=== PATIENT | female | born 1985 | race Caucasian/White ===

== ENCOUNTER 2017-05-13 23:09 | Day surgery (SDC) | payer OTHER ==
[~2017-05-13] VITALS: Ht 160 cm; Wt 91.2 kg
[~2017-05-13 23:09] MED LIST: OXYCODONE HCL5 M1 PO; REGLAN10 M1 PO
--- NOTE | 2017-05-14 01:01 | ED GI/GU/ABDOMINAL COMPLAINT ---
History of Present Illness General Chief Complaint: Abdominal Pain/Flank Pain Stated Complaint: RT SIDE ABD PAIN,+V X'S 3 HRS Source: patient, family, old records Exam Limitations: no limitations Vital Signs & Intake/Output Vital Signs & Intake/Output Vital Signs Date Time Temp Pulse Resp B/P B/P Pulse O2 O2 Flow FiO2 Mean Ox Delivery Rate 05/14 0529 99.6 95 18 110/62 98 Room Air 05/14 0037 Room Air 05/13 2319 99.8 88 16 140/84 97 Room Air ED Intake and Output 05/14 0000 05/13 1200 Intake Total Output Total Balance Patient 201 lb Weight Weight Estimated Measurement Method Allergies Coded Allergies: peanut (Severe, THROAT SWELLING AND HIVES 05/02/16) Sulfa (Sulfonamide Antibiotics) (Intermediate, HIVES, FACIAL REDNESS 05/02/16) latex ( 05/14/17) Reconcile Medications Albuterol Sulfate (Ventolin Hfa) 90 MCG HFA.AER.AD 2 PUF INH Q4-6 PRN PRN ASTHMA (Reported) Budesonide/Formoterol Fumarate (Symbicort 160-4.5 Mcg Inhaler) 160 MCG-4.5 MCG/ ACTUATION HFA.AER.AD 2 PUF INH BID ASTHMA (Reported) Metoclopramide HCl (Reglan) 10 MG TABLET 1 TAB PO Q6P PRN nausea/vomiting Montelukast Sodium 10 MG TABLET 1 TAB PO DAILY ALLERGY (Reported) Norethindrone-E.estradiol-Iron (Lo Loestrin Fe 1-10 Tablet) 1MG-10(24) TABLET 1 TAB PO DAILY CONTROL (Reported) Oxycodone HCl 5 MG TABLET 1 TAB PO Q6PRN migraine Triage Note: RECEIVED 31 YO FEMALE C/O RUQ ABDOMINAL PAIN RADIATING TO RLQ ABDOMIN, X 3 HOURS, NOW WITH NAUSEA AND VOMITING X 10. Triage Nurses Notes Reviewed? yes LMP (ages 10-50): unknown ? n Is pt currently ? No Onset: Evening Duration: hour(s):, constant, continues in ED, getting worse Timing: recent history Quality/Severity: aching, sharpness, severe, vomiting Location: right flank Radiation: RUQ Activities at Onset: none Prior Abdominal Problems: none Past Sexual History: Unobtainable at this time Modifying Factors: Worsens With: movement, palpation. Associated Symptoms: abdominal pain, loss of appetite, nausea/vomiting HPI: 4 hours prior to admission patient complains of nausea followed by right flank pain described as sharp and aching severe rating to right upper quadrant worse with palpation and movement. She denies fever chills chest pain cough shortness breath headache dysuria rash bleeding . Past History Travel History Traveled to [place] past 21 day No Medical History Any Pertinent Medical History? see below for history Neurological: NONE EENT: NONE Cardiovascular: NONE Respiratory: asthma Gastrointestinal: NONE Hepatic: NONE Renal: NONE Musculoskeletal: NONE Psychiatric: NONE Endocrine: NONE Blood Disorders: NONE Cancer(s): NONE WELT ROUGHER/Reproductive: NONE Surgical History Surgical History: non-contributory Psychosocial History Who do you live with Mother What is your primary language Lithuanian Tobacco Use: Current Not Daily Family History Hx Contributory? No Review of Systems Review of Systems Constitutional: Reports: see HPI, malaise. EENTM: Reports: no symptoms. Respiratory: Reports: no symptoms. Cardiovascular: Reports: no symptoms. GI: Reports: see HPI, abdominal pain, nausea, vomiting. Genitourinary: Reports: no symptoms. Musculoskeletal: Reports: no symptoms. Skin: Reports: no symptoms. Neurological/Psychological: Reports: no symptoms. Hematologic/Endocrine: Reports: no symptoms. Immunologic/Allergic: Reports: no symptoms. All Other Systems: Reviewed and Negative Physical Exam Physical Exam General Appearance: well developed/nourished, alert, awake, anxious, severe distress, obese Head: atraumatic, normal appearance Eyes: Bilateral: normal appearance, PERRL, EOMI, normal inspection. Ears, Nose, Throat, Mouth: hearing grossly normal, moist mucous membrane Neck: normal inspection, supple, full range of motion, normal alignment Respiratory: normal breath sounds, chest non-tender, no respiratory distress, quiet respiration, lungs clear Cardiovascular: regular rate/rhythm, normal peripheral pulses, norml femoral pulses equa Peripheral Pulses: 4+ carotid (R), 4+ carotid (L) Gastrointestinal: normal bowel sounds, soft, guarding, tenderness Back: normal inspection, normal range of motion Extremities: normal range of motion, no ligament instability Neurologic/Psych: no motor/sensory deficits, awake, alert, oriented x 3, normal gait, normal mood/affect, 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 No Severe Sepsis Present: No Septic Shock Present: No Progress Differential Diagnosis: appendicitis, gastritis, kidney stone, pancreatitis Plan of Care: Orders Procedure Date/time Status HIGH SENSITIVITY CRP 05/14 22 Complete HUMAN BETA HCG SCREEN 05/14 22 Complete COMPREHENSIVE METABOLIC PANEL 05/14 22 Complete CBC WITHOUT DIFFERENTIAL 05/14 22 Complete URINALYSIS 05/13 2320 Active Laboratory Tests 05/14/17 0535: Urine Color YEL, Urine Clarity CLEAR, Urine pH 6.0, Ur Specific [place] 1.015, Urine Protein TRACE H, Urine Ketones NEG, Urine Nitrite NEG, Urine Bilirubin NEG, Urine Urobilinogen 0.2, Ur Leukocyte Esterase NEG, Ur Microscopic SEDIMENT EXAMINED, Urine RBC Pending, Urine Hemoglobin NEG, Urine Glucose NEG 05/14/17 0110: CBC w Diff MAN DIFF ORDERED, RBC 4.40, MCV 83.8, MCH 27.8, RDW 13.8, MPV 8.5, Gran % 92.8 H, Lymphocytes % 5.6 L, Monocytes % 1.2 L, Eosinophils % 0.3, Basophils % 0.1, Absolute Granulocytes 17.6 H, Segmented Neutrophils 92 H, Absolute Lymphocytes 1.1 L, Lymphocytes 7 L, Monocytes 1 L, Absolute Monocytes 0.2, Absolute Eosinophils 0, Absolute Basophils 0, Platelet Estimate ADEQUATE, Normochromic RBCs VERIFIED, Poikilocytosis 1+, Ovalocytes 1+, PUBS MCHC 33.1, Fld Total RBCs Counted 100 05/14/17 0045: Anion Gap 13, Estimated GFR > 60, BUN/Creatinine Ratio 21.4, Glucose 110 H, Calcium 9.2, Total Bilirubin 0.5, AST 14, ALT 37, Alkaline Phosphatase 63, C- React Prot High Sens 7.5 H, Total Protein 7.4, Albumin 4.3, Globulin 3.1, Albumin/Globulin Ratio 1.4, Total Beta HCG NEGATIVE Diagnostic Imaging: Viewed by Me: CT Scan. Discussed w/RAD: CT Scan. Radiology Impression: appendicitis Initial ED EKG: none Departure Departure Disposition: STILL A PATIENT Condition: Stable Clinical Impression Primary Impression: Appendicitis Qualifiers: Appendicitis type: acute appendicitis Acute appendicitis type: with localized peritonitis Qualified Code: K35.3 - Acute appendicitis with localized peritonitis Secondary Impressions: Nausea & vomiting Qualifiers: Vomiting type: unspecified Vomiting Intractability: non-intractable Qualified Code: R11.2 - Nausea with vomiting, unspecified Referrals: PATIENT HAS NO PRIMARY CARE DR (PCP/Family) Departure Forms: Customer Survey General Discharge Information OR/GI Note Spoke With: VANDANA HWANG,JOHANNA Galaviz ED Treatment Decision: FRANCISCA COX requires urgent operative management or an emergent procedure that cannot be performed in the Emergency Room setting. Transport To: [facility]
[2017-05-14 01:15] LABS: ABSOLUTE BASOPHIL COUNT 0 /CUMM (0.0-0.2); ABSOLUTE EOSINOPHIL COUNT 0 /CUMM (0.0-0.7); ABSOLUTE GRANULOCYTE CT 17.6 /CUMM (1.4-6.5); ABSOLUTE LYMPH COUNT 1.1 /CUMM (1.2-3.4); ABSOLUTE MONOCYTE COUNT 0.2 /CUMM (0.10-0.60); BASOPHIL % 0.1 % (0.0-2.0); EOSINOPHIL % 0.3 % (0-5); GRANULOCYTE % 92.8 % (42.2-75.2); HEMATOCRIT 36.9 % (37-47); MEAN CORPUSCULAR HGB 27.8 PG (27.0-31.0); MEAN CORPUSCULAR HGB CONC 33.1 G/DL (33.0-37.0); MEAN CORPUSCULAR VOLUME 83.8 FL (81.0-99.0); MEAN PLATELET VOLUME 8.5 FL (7.4-10.4); PLATELET COUNT 227 /CUMM (130-400); RBC DISTRIBUTION WIDTH 13.8 % (11.5-14.5)
--- NOTE | 2017-05-14 03:08 | CT SCAN REPORT ---
EXAMINATION: CT ABDOMEN AND PELVIS WITH CONTRAST CLINICAL INFORMATION: Right lower quadrant/flank pain with nausea and vomiting COMPARISON: None TECHNIQUE: Multidetector volumetric imaging was performed of the abdomen and pelvis before and after the IV administration of 93 mL of Optiray 320 intravenous contrast. Sagittal and coronal reformatted images were obtained on the technologist's workstation. DLP: 580.72 mGy-cm FINDINGS: LUNG BASES: There is a nodule in the lingula measuring 5 mm on image 23/728. There is a 3 mm nodule in the lingula on image 47/728. There is a groundglass nodule in the right lower lobe measuring 4 mm on image 25/728. LIVER, GALLBLADDER, AND BILIARY TREE: The liver is enlarged. No focal hepatic lesion or biliary ductal dilatation is present. Patient is suspected to be status post cholecystectomy. PANCREAS: Unremarkable. SPLEEN: Unremarkable. ADRENAL GLANDS: Unremarkable. KIDNEYS AND URETERS: The kidneys are normal in size, shape, and attenuation. No hydronephrosis, hydroureter, or calculi seen. No perinephric stranding. BLADDER: Unremarkable. GASTROINTESTINAL TRACT: The appendix is fluid-filled and dilated to approximately 10 mm, with surrounding inflammation consistent with appendicitis. No free air or periappendiceal abscess is seen. No evidence of bowel obstruction. ABDOMINAL WALL: No significant hernia is appreciated. LYMPH NODES: Normal. VASCULAR: A retroaortic left renal vein is noted. PELVIC VISCERA: Unremarkable. OSSEOUS STRUCTURES: Unremarkable. IMPRESSION: 1. Acute appendicitis, without perforation or abscess formation. 2. Small bibasilar lung nodules, nonspecific though statistically likely benign in the absence of additional relevant clinical history. If the patient is at increased risk for malignancy, 12 month follow-up chest CT is advised. 3. Hepatomegaly.
--- NOTE | 2017-05-14 04:02 | Admission Core Measures ---
Admission Lab Results I reviewed the following labs: Laboratory Tests 05/14 05/14 0110 0045 Chemistry Sodium (137 - 145 mmol/L) 142 Potassium (3.5 - 5.1 mmol/L) 4.3 Chloride (98 - 107 mmol/L) 106 Carbon Dioxide (22 - 30 mmol/L) 23 Anion Gap (5 - 16) 13 BUN (7 - 17 mg/dL) 15 Creatinine (0.5 - 1.0 mg/dL) 0.7 Estimated GFR (>60 ml/min) > 60 BUN/Creatinine Ratio (7 - 25 %) 21.4 Glucose (65 - 99 mg/dL) 110 H Calcium (8.4 - 10.2 mg/dL) 9.2 Total Bilirubin (0.2 - 1.3 mg/dL) 0.5 AST (14 - 36 U/L) 14 ALT (9 - 52 U/L) 37 Alkaline Phosphatase (<127 U/L) 63 C-React Prot High Sens (1.0 - 3.0 mg/L) 7.5 H Total Protein (6.3 - 8.2 g/dL) 7.4 Albumin (3.5 - 5.0 g/dL) 4.3 Globulin (1.9 - 4.2 gm/dL) 3.1 Albumin/Globulin Ratio (1.1 - 2.2 %) 1.4 Total Beta HCG (NEGATIVE) NEGATIVE Hematology CBC w Diff MAN DIFF ORDERED WBC (4.8 - 10.8 /CUMM) 19.0 H RBC (4.20 - 5.40 /CUMM) 4.40 Hgb (12.0 - 16.0 G/DL) 12.2 Hct (37 - 47 %) 36.9 L MCV (81.0 - 99.0 FL) 83.8 MCH (27.0 - 31.0 PG) 27.8 RDW (11.5 - 14.5 %) 13.8 Plt Count (130 - 400 /CUMM) 227 MPV (7.4 - 10.4 FL) 8.5 Gran % (42.2 - 75.2 %) 92.8 H Lymphocytes % (20.5 - 51.1 %) 5.6 L Monocytes % (1.7 - 9.3 %) 1.2 L Eosinophils % (0 - 5 %) 0.3 Basophils % (0.0 - 2.0 %) 0.1 Absolute Granulocytes (1.4 - 6.5 /CUMM) 17.6 H Segmented Neutrophils (42.2 - 75.2 %) 92 H Absolute Lymphocytes (1.2 - 3.4 /CUMM) 1.1 L Lymphocytes (20.5 - 51.1 %) 7 L Monocytes (1.7 - 9.3 %) 1 L Absolute Monocytes (0.10 - 0.60 /CUMM) 0.2 Absolute Eosinophils (0.0 - 0.7 /CUMM) 0 Absolute Basophils (0.0 - 0.2 /CUMM) 0 Platelet Estimate (ADEQUATE) ADEQUATE Normochromic RBCs VERIFIED Poikilocytosis 1+ Ovalocytes 1+ PUBS MCHC (33.0 - 37.0 G/DL) 33.1 Other Body Source Fld Total RBCs Counted (%) 100 Acute Coronary Syndrome Inclusion Criteria ACS Diagnosis No Inpatient Core Measures LDL Reminder: If No, please order W/I first 24hr of stay Congestive Heart Failure Inclusion Criteria CHF Diagnosis No Cerebrovascular accident Inclusion Criteria CVA/TIA Diagnosis No Inpatient Core Measures Bedside Swallow Eval Reminder: If BSE failed, place ST order Antithrombotic Reminder: Order Antithrombotic Medication by end of day 2 Antithrombotic Reminder: Document Reason Antithrombotic Not ordered by end of day 2 AFIB/Flutter Reminder: If Present, add to problem list AFIB/Flutter Reminder: Order Anticoag Medication for pts with AFIB/Flutter Atherosclerosis Reminder: If Present, add to problem list LDL Reminder: If No, please order W/I first 24hr of stay PT Order Reminder: If No, please order Venous thromboembolism Inpatient Core Measures VTE Risk Factors: No Risk Factors No [facility] VTE prophylaxis d/t No contraindications No VTE Pharm Prophylaxis d/t No contraindications Inclusion Criteria - Per Current guidelines, there needs to be overlap - treatment for the first 5 days of Warfarin therapy. - Parenteral Anticoagulation (IV or SC) needs to be - given along with Warfarin therapy. VTE Diagnosis No VTE Type NONE VTE Confirmed by (Test) NONE Problem List As ranked by this Provider includes Assessment & Plan 1. Appendicitis HOME MEDS Home Med List Metoclopramide HCl (Reglan) 10 MG TABLET 1 TAB PO Q6P PRN nausea/vomiting Oxycodone HCl 5 MG TABLET 1 TAB PO Q6PRN migraine
--- NOTE | 2017-05-14 04:10 | History & Physical Pre-Op ---
NAN FONTENOT 05/14/17 0401: General Information and HPI MD Statement: I have seen and personally examined FRANCISCA COX and documented this H&P. The patient is a 31 year old F who presented with a patient stated chief complaint of abdominal pain 1 day. Source of Information: patient Exam Limitations: no limitations History of Present Illness: 31-year-old female presents emergency department late last night with complaints a few hours of right lower quadrant abdominal pain. The patient was seen she reports sudden onset of sharp, constant, and crampy right lower quadrant pain approximate 7:00 yesterday evening. The pain became progressively worse with associated nausea/vomiting and anorexia. The patient came to rest department for further workup. She had no other complaints the current time and denied any fever/chills, dysuria, chest pain or palpitations, difficulty breathing or recent illness. Patient reports regular bowel function and no past history of similar episodes. Allergies/Medications Allergies: Coded Allergies: peanut (Severe, THROAT SWELLING AND HIVES 05/02/16) Sulfa (Sulfonamide Antibiotics) (Intermediate, HIVES, FACIAL REDNESS 05/02/16) latex ( 05/14/17) Past History Medical History Neurological: NONE EENT: NONE Cardiovascular: NONE Respiratory: asthma Gastrointestinal: NONE Hepatic: NONE Renal: NONE Musculoskeletal: NONE Psychiatric: NONE Endocrine: NONE Blood Disorders: NONE Cancer(s): NONE OUTSOLE SKIVER/Reproductive: NONE Surgical History Pertinent Surgical History: cholecystectomy, , right wrist ganglion cyst excision, tonsils and adenoids, sinus surgery, eustachian tubes Past Family/Social History Psychosocial History Where Do You Live? Home Who Do You Live With? spouse Services at Home None Primary Language: Kyrgyz Smoking Status: Never Smoked ETOH Use: denies use Functional Ability ADLs Independent: dressing, eating, toileting, bathing. Ambulation: independent IADLs Independent: shopping, housework, finances, food prep, telephone, transportation , medication admin. Review of Systems Review of Systems: 12 point review of systems is negative aside for what is included in the above HPI. Additionally, family history was reviewed no shortening fractures with direct pertinence to this case Exam & Diagnostic Data Last 24 Hrs of Vital Signs/I&O Vital Signs Date Time Temp Pulse Resp B/P B/P Pulse O2 O2 Flow FiO2 Mean Ox Delivery Rate 05/14 0037 Room Air 05/13 2319 99.8 88 16 140/84 97 Room Air Intake & Output 05/14 0800 05/14 0000 05/13 1600 Intake Total Output Total 100 Balance -100 Output, 100 Emesis Patient 201 lb Weight Weight Estimated Measurement Method Laboratory Tests 05/14 05/14 0110 0045 Chemistry Sodium (137 - 145 mmol/L) 142 Potassium (3.5 - 5.1 mmol/L) 4.3 Chloride (98 - 107 mmol/L) 106 Carbon Dioxide (22 - 30 mmol/L) 23 Anion Gap (5 - 16) 13 BUN (7 - 17 mg/dL) 15 Creatinine (0.5 - 1.0 mg/dL) 0.7 Estimated GFR (>60 ml/min) > 60 BUN/Creatinine Ratio (7 - 25 %) 21.4 Glucose (65 - 99 mg/dL) 110 H Calcium (8.4 - 10.2 mg/dL) 9.2 Total Bilirubin (0.2 - 1.3 mg/dL) 0.5 AST (14 - 36 U/L) 14 ALT (9 - 52 U/L) 37 Alkaline Phosphatase (<127 U/L) 63 C-React Prot High Sens (1.0 - 3.0 mg/L) 7.5 H Total Protein (6.3 - 8.2 g/dL) 7.4 Albumin (3.5 - 5.0 g/dL) 4.3 Globulin (1.9 - 4.2 gm/dL) 3.1 Albumin/Globulin Ratio (1.1 - 2.2 %) 1.4 Total Beta HCG (NEGATIVE) NEGATIVE Hematology CBC w Diff MAN DIFF ORDERED WBC (4.8 - 10.8 /CUMM) 19.0 H RBC (4.20 - 5.40 /CUMM) 4.40 Hgb (12.0 - 16.0 G/DL) 12.2 Hct (37 - 47 %) 36.9 L MCV (81.0 - 99.0 FL) 83.8 MCH (27.0 - 31.0 PG) 27.8 RDW (11.5 - 14.5 %) 13.8 Plt Count (130 - 400 /CUMM) 227 MPV (7.4 - 10.4 FL) 8.5 Gran % (42.2 - 75.2 %) 92.8 H Lymphocytes % (20.5 - 51.1 %) 5.6 L Monocytes % (1.7 - 9.3 %) 1.2 L Eosinophils % (0 - 5 %) 0.3 Basophils % (0.0 - 2.0 %) 0.1 Absolute Granulocytes (1.4 - 6.5 /CUMM) 17.6 H Segmented Neutrophils (42.2 - 75.2 %) 92 H Absolute Lymphocytes (1.2 - 3.4 /CUMM) 1.1 L Lymphocytes (20.5 - 51.1 %) 7 L Monocytes (1.7 - 9.3 %) 1 L Absolute Monocytes (0.10 - 0.60 /CUMM) 0.2 Absolute Eosinophils (0.0 - 0.7 /CUMM) 0 Absolute Basophils (0.0 - 0.2 /CUMM) 0 Platelet Estimate (ADEQUATE) ADEQUATE Normochromic RBCs VERIFIED Poikilocytosis 1+ Ovalocytes 1+ PUBS MCHC (33.0 - 37.0 G/DL) 33.1 Other Body Source Fld Total RBCs Counted (%) 100 CAT scan of abdomen and pelvis positive for acute appendicitis Physical Exam: Gen.: Alert and in no obvious distress Skin: Warm and dry without jaundice H EENT: Pupils are equal and reactive to light and accommodation, acephalic and nontraumatic Neck: supple with no lymphadenopathy Chest: Nontender with equal expansion Cardiac: S1 and S2 regular Pulmonary: Bilateral breath sounds are equal with good exchange no wheezes, rales, rhonchi were appreciated. Abdomen: Soft, nondistended, moderate right lower quadrant tenderness with rebound but no guarding, bowel sounds positive. No masses or hernias were appreciated. Extremities: All 4 extremities with equal strength, bilateral lower extremities were warm without calf tenderness or significant edema. Gross motor and sensory are intact. Neuro: Patient was alert and oriented 3 with a nonfocal exam Assessment/Plan Assessment/Plan: Assessment: 31-year-old female with 1 day history of abdominal pain. Emergency department workup is positive and highly suspicious for acute appendicitis. Case was discussed with Dr. Alejandro Ross. Plan: The patient will be kept nothing by mouth with IV fluids and antibiotics PRN antiemetics, antipyretics, and pain medication GI and DVT prophylaxis The patient will be brought to the operating theater sometime this morning for laparoscopic appendectomy As Ranked By This Provider Problem List: 1. Appendicitis ROSSJOHANNA FERNANDEZ MD 05/14/17 0752: General Information and HPI Allergies/Medications Home Med list Albuterol Sulfate (Ventolin Hfa) 90 MCG HFA.AER.AD 2 PUF INH Q4-6 PRN PRN ASTHMA (Reported) Budesonide/Formoterol Fumarate (Symbicort 160-4.5 Mcg Inhaler) 160 MCG-4.5 MCG/ ACTUATION HFA.AER.AD 2 PUF INH BID ASTHMA (Reported) Metoclopramide HCl (Reglan) 10 MG TABLET 1 TAB PO Q6P PRN nausea/vomiting Montelukast Sodium 10 MG TABLET 1 TAB PO DAILY ALLERGY (Reported) Norethindrone-E.estradiol-Iron (Lo Loestrin Fe 1-10 Tablet) 1MG-10(24) TABLET 1 TAB PO DAILY CONTROL (Reported) Oxycodone HCl 5 MG TABLET 1 TAB PO Q6PRN migraine Attending MD Review Statement Attending Statement Attending MD Statement: examined this patient, discuss w/resident/PA/FOOD SERVICE UTILITY WORKER, reviewed images Attending Assessment/Plan: 31-year-old obese woman with past medical history significant for asthma presents with a constellation of signs and symptoms consistent with acute appendicitis. Diagnosis is confirmed with CT scan. Plan will be to give her broad-spectrum antibiotics and proceed with prompt laparoscopic appendectomy. She is informed of the risks of the operation including bleeding and recurrent infection and she agrees to proceed.
[2017-05-14] MEDS ORDERED: MONTELUKAST SOD10 M1 PO (04:24)
[2017-05-14] MEDS ORDERED: VENTOLIN HFA18 GM INH (04:24)
[2017-05-14] MEDS ORDERED: LO LOESTRIN FE1 EACH PO (04:24)
[2017-05-14] MEDS ORDERED: SYMBICORT 16010.2 GM INH (04:25)
[2017-05-14 05:29] VITALS: BP 110/62
--- NOTE | 2017-05-14 07:55 | Operative Report ---
Operative/Inv Procedure Report Surgery Date: 05/14/17 Name of Procedure: Laparoscopic appendectomy Pre-Operative Diagnosis: Acute appendicitis Post-Operative Diagnosis: Same Estimated Blood Loss: less than 50ml Surgeon/Napper Tender: Wood Dwyer M.D./Benjamin BETH Anesthesia: general endotracheal tube Specimens: Appendix Operative Indication: See preoperative H&P Operative/Procedure Note Note: After consent patient is brought to the operating room and laid supine. General anesthesia was obtained his abdomen was prepped and draped. Skin above the umbilicus was after local anesthesia a curvilinear incision made sharply. We dissected through subcutaneous tissues tissues bluntly and identified the fascia. It was grasped with Jayna's and a fasciotomy created sharply. The peritoneum was entered sharply and a blunt Ann port was placed. Pneumoperitoneum was achieved. 2, 5 mm ports were placed in the suprapubic region and left lower quadrant, after local anesthesia was instilled and under direct vision the camera. Patient placed in Trendelenburg and rotated towards the left. The abdomen was explored. The appendix was partially retrocecal. We took down the peritoneal attachments laterally with cautery. There was some mild bleeding during our dissection. We then created a plane medial between the appendix and the cecum. This was performed bluntly as well as using cautery. The base the appendix was then grasped and a window developed with a [place] dissector. The vasculature to the appendix was divided with Endo NOAH Mahoney load, 2 loads. The base was divided with an Endo NOAH Mahoney load. Appendix placed in Endo Catch bag and cinched up. The right lower quadrant and pelvis were then irrigated with normal saline. Hemostasis was adequate. Ports then removed and appendix delivered and passed off the field. The fascia was closed 0 Vicryl suture. Skin incisions closed with 4-0 Vicryl. Steri-Strips and sterile dressing applied. Sponge and needle counts are correct
== END 2017-05-14 ==
LOC: ERH 23:09 → STS 23:13 → ERH 23:13 → STS 05-14 06:24
PROVIDERS: Emergency Medicine
DX: K35.80 Unspecified acute appendicitis (principal); J45.909 Unspecified asthma, uncomplicated; Z72.0 Tobacco use
CPT/HCPCS: 74177; 81001; 81025; 88304; 96374; 96375; J0131; J1885; J2250; J2765; J3010